=== PATIENT | male | born 1960 | race Caucasian/White ===

== ENCOUNTER 2018-04-27 09:39 | Inpatient (IN) ==
--- NOTE | 2018-04-27 09:45 | Emergency Department Note ---
General Adult HPI - General Stated complaint: maria del rosario Time Seen by Provider: 04/27/18 09:44 - Related Data Home Medications Medication Instructions Recorded Confirmed Atenolol [Atenolol] 100 mg PO DAILY 01/26/18 01/26/18 Lisinopril-HCTZ 20-12.5 [Prinzide 01/26/18 20-12.5] Lovastatin [Mevacor] 20 mg PO BID 01/26/18 01/26/18 metFORMIN [Glucophage] 500 mg PO BID 01/26/18 01/26/18 Previous Rx's Medication Instructions Recorded Doxycycline 100 mg PO BID #20 capsule 04/26/18 Allergies Allergy/AdvReac Type Severity Reaction Status Date / Time Erythromycin Base AdvReac See Verified 04/26/18 15:41 [From E-Mycin] Comments Past Medical History - Past Medical History Medical history: Reports: diabetes, hyperlipidemia, hypertension Surgical history: Reports: cholecystectomy Psychiatric history: Reports: no psych history - Social History Smoking Status: Never smoker Smokeless Tobacco Status: No Alcohol use: Reports: occasionally Drug use: Reports: none
--- NOTE | 2018-04-27 09:47 | Emergency Department Note ---
Disposition Clinical Impression: Congestive heart failure, KARI (acute kidney injury) Disposition: Still a Patient General Adult HPI - General Stated complaint: maria del rosario Time Seen by Provider: 04/27/18 09:44 - Related Data Home Medications Medication Instructions Recorded Confirmed Atenolol [Atenolol] 100 mg PO DAILY 01/26/18 04/27/18 Lovastatin [Mevacor] 40 mg PO QPM 01/26/18 04/27/18 metFORMIN [Glucophage] 500 mg PO BID 01/26/18 04/27/18 Lisinopril/Hydrochlorothiazide 1 tab PO DAILY 04/27/18 04/27/18 [Zestoretic 20-25 mg Tablet] Previous Rx's Medication Instructions Recorded Doxycycline 100 mg PO BID #20 capsule 04/26/18 Allergies Allergy/AdvReac Type Severity Reaction Status Date / Time Erythromycin Base AdvReac See Verified 04/26/18 15:41 [From E-Mycin] Comments Past Medical History - Past Medical History Medical history: Reports: diabetes, hyperlipidemia, hypertension Surgical history: Reports: cholecystectomy Psychiatric history: Reports: no psych history - Social History Smoking Status: Never smoker Smokeless Tobacco Status: No Alcohol use: Reports: occasionally Drug use: Reports: none Course Vital Signs Temperature 98.0 F 04/27/18 09:46 Pulse Rate 63 04/27/18 09:46 Respiratory Rate 26 04/27/18 09:46 Blood Pressure 116/67 04/27/18 09:46 O2 Sat by Pulse Oximetry 97 04/27/18 09:46 Temperature 98.7 F 04/27/18 15:55 Pulse Rate 93 04/27/18 15:55 Respiratory Rate 18 04/27/18 15:55 Blood Pressure 119/63 04/27/18 15:55 O2 Sat by Pulse Oximetry 91 04/27/18 15:55 Oxygen Delivery Oxygen Delivery Room Air Medical Decision Making - Lab Data Result diagrams: 04/27/18 09:59 04/27/18 09:59 Lab Results 04/27/18 04/27/18 04/27/18 Range/Units 09:59 09:59 09:59 WBC 7.2 (4.3-11.1) K/mcL RBC 3.85 L (4.19-5.50) M/mcL Hgb 11.0 L (12.9-16.9) g/dL Hct 33.9 L (37.5-50.1) % MCV 88.1 (83.0-100.0) fL MCH 28.6 (28.0-33.3) pg MCHC 32.4 (31.6-35.5) g/dL RDW 16.4 H (11.5-14.5) % Plt Count 350 (140-400) K/mcL MPV 9.3 L (9.4-12.4) fL Immature Gran % 0.6 (0-4) % Seg Neutrophils % 66.1 % Lymphocytes % 19.0 % Monocytes % 9.6 % Eosinophils % 3.9 % Basophils % 0.8 % Neutrophils # 4.8 (1.6-8.9) K/mcL Lymphocytes # 1.4 (0.6-4.6) K/mcL Monocytes # 0.7 (0.0-1.3) K/mcL Eosinophils # 0.3 (0.0-0.6) K/mcL Basophils # 0.1 (0.0-0.2) K/mcL PT 13.7 H (9.4-12.1) Seconds INR 1.2 Heparin Anti-Xa, Unfract 0.06 L (0.30-0.70) IU/mL Sodium 140 (136-145) mEq/L Potassium 3.5 (3.5-5.1) mEq/L Chloride 108 H (98-107) mEq/L Carbon Dioxide 20 L (23-29) mEq/L BUN 41 H (8-23) mg/dL Creatinine 2.26 H (0.70-1.30) mg/dL Est GFR ( Amer) 36 L (> 60) Est GFR (Non-Af Amer) 30 L (> 60) BUN/Creatinine Ratio 18 (6-26) Glucose 103 (70-105) mg/dL Calculated Osmolality 300 (280-300) Calcium 8.9 (8.6-10.3) mg/dL Magnesium 2.6 (1.6-2.6) mg/dL Total Bilirubin 0.2 L (0.3-1.0) mg/dL AST 46 H (13-39) Units/L ALT 20 (7-52) Units/L Alkaline Phosphatase 40 (34-104) Units/L Troponin I 0.47 H* (< 0.04) ng/mL B-Natriuretic Peptide (Less than 100) pg/mL Serum Total Protein 7.5 (6.4-8.9) g/dL Albumin 4.3 (3.5-5.7) g/dL Globulin 3.2 (2.4-3.5) g/dL Albumin/Globulin Ratio 1.3 (1.1-2.2) 04/27/18 Range/Units 09:59 WBC (4.3-11.1) K/mcL RBC (4.19-5.50) M/mcL Hgb (12.9-16.9) g/dL Hct (37.5-50.1) % MCV (83.0-100.0) fL MCH (28.0-33.3) pg MCHC (31.6-35.5) g/dL RDW (11.5-14.5) % Plt Count (140-400) K/mcL MPV (9.4-12.4) fL Immature Gran % (0-4) % Seg Neutrophils % % Lymphocytes % % Monocytes % % Eosinophils % % Basophils % % Neutrophils # (1.6-8.9) K/mcL Lymphocytes # (0.6-4.6) K/mcL Monocytes # (0.0-1.3) K/mcL Eosinophils # (0.0-0.6) K/mcL Basophils # (0.0-0.2) K/mcL PT (9.4-12.1) Seconds INR Heparin Anti-Xa, Unfract (0.30-0.70) IU/mL Sodium (136-145) mEq/L Potassium (3.5-5.1) mEq/L Chloride (98-107) mEq/L Carbon Dioxide (23-29) mEq/L BUN (8-23) mg/dL Creatinine (0.70-1.30) mg/dL Est GFR ( Amer) (> 60) Est GFR (Non-Af Amer) (> 60) BUN/Creatinine Ratio (6-26) Glucose (70-105) mg/dL Calculated Osmolality (280-300) Calcium (8.6-10.3) mg/dL Magnesium (1.6-2.6) mg/dL Total Bilirubin (0.3-1.0) mg/dL AST (13-39) Units/L ALT (7-52) Units/L Alkaline Phosphatase (34-104) Units/L Troponin I (< 0.04) ng/mL B-Natriuretic Peptide 120 H (Less than 100) pg/mL Serum Total Protein (6.4-8.9) g/dL Albumin (3.5-5.7) g/dL Globulin (2.4-3.5) g/dL Albumin/Globulin Ratio (1.1-2.2) Critical Care Time Critical Care Time: Yes Total Critical Care Time: 30 Attestation: The high probability of a clinically significant, sudden or life threatening deterioration of the [] system(s) required my full and direct attention, intervention and personal management. The aggregate critical care time was [] minutes. This time is in addition to time spent performing reported procedures but includes the following: [] Data Review and interpretation [] Patient assessment and monitoring of vital signs [] Documentation [] Medication orders and management Attestation Statement - Attestation Attestation: I examined this patient and my medical decision-making was reviewed with the Resident Physician. I agree with the documented findings, disposition and treatment plan as described except to the extent set forth below. [id number] time provided in conjunction with the resident physician Dr. Tinoco Patient arrives by EMS complaining of dyspnea. He is not oxygen dependent. He required assistance transferring from the stretcher to the medical examination bed. He is visibly dyspneic. He weighs 435 pounds
--- NOTE | 2018-04-27 10:02 | Emergency Department Note ---
Disposition Clinical Impression: Congestive heart failure, KARI (acute kidney injury) Disposition: Still a Patient Referrals: Phil Le MD [Primary Care Provider] - Forms: ED Satisfaction Letter SOB HPI - General Chief Complaint: ED Shortness of Breath/Dyspnea Stated Complaint: maria del rosario Time Seen by Provider: 04/27/18 09:44 Source: EMS Limitations: no limitations - History of Present Illness 58 YO M presenting with SOB with history of morbid obesity, diabetes, hyperlipidemia, hypertension. Patient reports having 2 week history of SOB, which has been constant and worsening. Endorses SOB with exertion but not at rest. Denies fever, night sweats, chills. Reports diabetes has been controlled and history of 15 years. Patient does not believe he has had workup for diabetes related end organ damage including heart and kidneys. Reports blood glucose has been controlled,, does not have last A1C. Patient recently started bipap 3 weeks ago and reports tolerating mask well. - Related Data Home Medications Medication Instructions Recorded Confirmed Atenolol [Atenolol] 100 mg PO DAILY 01/26/18 01/26/18 Lovastatin [Mevacor] 20 mg PO BID 01/26/18 01/26/18 metFORMIN [Glucophage] 500 mg PO BID 01/26/18 01/26/18 Lisinopril/Hydrochlorothiazide 1 tab PO DAILY 04/27/18 04/27/18 [Zestoretic 20-25 mg Tablet] Previous Rx's Medication Instructions Recorded Doxycycline 100 mg PO BID #20 capsule 04/26/18 Allergies Allergy/AdvReac Type Severity Reaction Status Date / Time Erythromycin Base AdvReac See Verified 04/26/18 15:41 [From E-Mycin] Comments Past Medical History - Past Medical History Medical history: Reports: diabetes, hyperlipidemia, hypertension Surgical history: Reports: cholecystectomy Psychiatric history: Reports: no psych history - Social History Smoking Status: Never smoker Smokeless Tobacco Status: No Alcohol use: Reports: occasionally Drug use: Reports: none Physical Exam - General Limitations: no limitations General appearance: alert, in no apparent distress - Head Head exam: atraumatic, normocephalic - Chest Chest inspection: Present: normal inspection, symmetric chest wall rise. Absent : tenderness - Respiratory Respiratory exam: Present: normal lung sounds bilaterally. Absent: wheezes, stridor, accessory muscle use, prolonged expiratory phase - Cardiovascular Cardiovascular exam: Present: regular rate, normal rhythm, normal heart sounds - Neurological Exam Neurological exam: Present: alert, oriented X3 - Psychiatric Psychiatric exam: Present: normal affect, normal mood Course Course Narrative: 58 YO M presenting with SOB with history of morbid obesity, diabetes, hyperlipidemia, hypertension. Lungs sound clear so no congestive process - no diuretics at this time. CXR ordered. Will give BIPAP. Given patient's several cardiac risk factors - tropinons and ekg. - Reevaluation(s) Reevaluation #1: CXR showed cardiomegaly and vascular congestion - going to give lasixs. Troponin 0.47, most likely NSTEMI or baseline levels due to morbid obesity. Given aspirin and low does heparin. Spoke to cardiology and they are on board to manage patient. Admitting to hospitalists. Vital Signs Temperature 98.0 F 04/27/18 09:46 Pulse Rate 63 04/27/18 09:46 Respiratory Rate 26 04/27/18 09:46 Blood Pressure 116/67 04/27/18 09:46 O2 Sat by Pulse Oximetry 97 04/27/18 09:46 Temperature 98.0 F 04/27/18 09:46 Pulse Rate 63 04/27/18 09:46 Respiratory Rate 11 04/27/18 10:06 Blood Pressure 116/67 04/27/18 10:06 O2 Sat by Pulse Oximetry 97 04/27/18 10:06 Oxygen Delivery Oxygen Delivery Room Air Shortness of Breath/Dyspnea - Lab Data Result diagrams: 04/27/18 09:59 04/27/18 09:59 Lab Results 04/27/18 04/27/18 04/27/18 Range/Units 09:59 09:59 09:59 WBC 7.2 (4.3-11.1) K/mcL RBC 3.85 L (4.19-5.50) M/mcL Hgb 11.0 L (12.9-16.9) g/dL Hct 33.9 L (37.5-50.1) % MCV 88.1 (83.0-100.0) fL MCH 28.6 (28.0-33.3) pg MCHC 32.4 (31.6-35.5) g/dL RDW 16.4 H (11.5-14.5) % Plt Count 350 (140-400) K/mcL MPV 9.3 L (9.4-12.4) fL Immature Gran % 0.6 (0-4) % Seg Neutrophils % 66.1 % Lymphocytes % 19.0 % Monocytes % 9.6 % Eosinophils % 3.9 % Basophils % 0.8 % Neutrophils # 4.8 (1.6-8.9) K/mcL Lymphocytes # 1.4 (0.6-4.6) K/mcL Monocytes # 0.7 (0.0-1.3) K/mcL Eosinophils # 0.3 (0.0-0.6) K/mcL Basophils # 0.1 (0.0-0.2) K/mcL PT 13.7 H (9.4-12.1) Seconds INR 1.2 Heparin Anti-Xa, Unfract 0.06 L (0.30-0.70) IU/mL Sodium 140 (136-145) mEq/L Potassium 3.5 (3.5-5.1) mEq/L Chloride 108 H (98-107) mEq/L Carbon Dioxide 20 L (23-29) mEq/L BUN 41 H (8-23) mg/dL Creatinine 2.26 H (0.70-1.30) mg/dL Est GFR ( Amer) 36 L (> 60) Est GFR (Non-Af Amer) 30 L (> 60) BUN/Creatinine Ratio 18 (6-26) Glucose 103 (70-105) mg/dL Calculated Osmolality 300 (280-300) Calcium 8.9 (8.6-10.3) mg/dL Magnesium 2.6 (1.6-2.6) mg/dL Total Bilirubin 0.2 L (0.3-1.0) mg/dL AST 46 H (13-39) Units/L ALT 20 (7-52) Units/L Alkaline Phosphatase 40 (34-104) Units/L Troponin I 0.47 H* (< 0.04) ng/mL Serum Total Protein 7.5 (6.4-8.9) g/dL Albumin 4.3 (3.5-5.7) g/dL Globulin 3.2 (2.4-3.5) g/dL Albumin/Globulin Ratio 1.3 (1.1-2.2) - EKG Data EKG results narrative: no ST elevation EKG shows normal: Reports: sinus rhythm, axis, intervals, QRS complexes, ST-T waves Rate: Reports: normal Heart block present: Denies: 1st Degree, Mobitz 1, Mobitz 2, complete heart block
[2018-04-27 10:14] LABS: Basophils # 0.1 K/mcL (0.0-0.2); Basophils % 0.8 %; Eosinophils # 0.3 K/mcL (0.0-0.6); Eosinophils % 3.9 %; Hematocrit 33.9 % (37.5-50.1); Immature Granulocytes % 0.6 % (0-4); Lymphocytes # 1.4 K/mcL (0.6-4.6); Mean Corpuscular HGB Conc 32.4 g/dL (31.6-35.5); Mean Corpuscular Hemoglobin 28.6 pg (28.0-33.3); Mean Corpuscular Volume 88.1 fL (83.0-100.0); Mean Platelet Volume 9.3 fL (9.4-12.4); Monocytes # 0.7 K/mcL (0.0-1.3); Monocytes % 9.6 %; Neutrophils # 4.8 K/mcL (1.6-8.9); Platelet Count 350 K/mcL (140-400); Red Blood Count 3.85 M/mcL (4.19-5.50); Red Cell Distribution Width 16.4 % (11.5-14.5); Segmented Neutrophils % 66.1 %
[2018-04-27 10:22] LABS: INR 1.2; Prothrombin Time 13.7 Seconds (9.4-12.1)
[2018-04-27 10:31] LABS: Albumin 4.3 g/dL (3.5-5.7); Albumin/Globulin Ratio 1.3 (1.1-2.2); Bilirubin,Total 0.2 mg/dL (0.3-1.0); Calcium 8.9 mg/dL (8.6-10.3); Globulin 3.2 g/dL (2.4-3.5); Magnesium 2.6 mg/dL (1.6-2.6); Potassium 3.5 mEq/L (3.5-5.1); Total Protein 7.5 g/dL (6.4-8.9)
[2018-04-27] MEDS ORDERED: Furosemide 40 MG/4 ML VIAL IVP ONE (10:35)
[2018-04-27 10:37] LABS: Troponin I 0.47 ng/mL (< 0.04)
[2018-04-27] MEDS ORDERED: Aspirin 325 MG TABLET PO ONE (10:38)
[2018-04-27] MEDS ORDERED: *HR* Heparin 5,000 UNIT/ML VIAL IVP PRN ×2 (10:39)
[2018-04-27 10:49] LABS: Heparin anti-factor XA UFH 0.06 IU/mL (0.30-0.70)
[2018-04-27] MEDS: Heparin 25,000 UNIT/500 ML D5W 25,000 UNIT/500 ML BAG IVC SCH (12:29)
[2018-04-27] MEDS ORDERED: Naloxone 0.4 MG/ML INJ IVP PRN (13:19)
[2018-04-27] MEDS ORDERED: *HR* HYDROcodone/Acet 5/325 mg TABLET PO PRN (13:19)
[2018-04-27] MEDS ORDERED: *HR* OxyCODONE Immed Rel 5 MG TABLET PO PRN (13:19)
--- NOTE | 2018-04-27 13:22 | Internal Med History&Physical ---
Date of Encounter: 04/27/18 Time of Encounter: 13:21 Internal Medicine - H&P: HPI Chief complaint: Shortness of breath on exertion Admitted From: Home Plans for Post Hospital Care: Home History of present illness: Mr. Slater is a 58 year old male with PMH of DM, Morbid Obesity with BMI of 68.1 , HLD, HTN, Hearing difficulty who presented with complains of shortness of breath The patient was in his usual state of health till3 days prior to presentation when he developed shortness of breath, worse with exertion, the patient reports he presented to the urgent care twice this week for the same complaints, he reports associated nausea and fatigue with shortness of breath on exertion. He had no chest pain. On evaluation, he still has no chest pain. However he was told in the urgent care today was dehydrated and encouraged to take liberal fluids and discharged home. He reports shortness of breath continues to worsen such that he can only walk a few feet before being dyspneic. He has a medical history of obstructive sleep apnea and is compliant with his CPAP machine. He denies cough, he denies fever or chills, he denies palpitations, he denies diaphoresis. chart review, the patient was at the emergency room yesterday, a vq scan was done to rule out pulmonary embolism showed low probability for pe, creatinine was double the patient's baseline. He denies any changes in bowel habits, no changes in urinary habits, but he reports poor oral intake in the past few days. He denies NSAIDs use, he denies flank pain or dysuria. He has no neurologic symptoms. He does have chronic sensorineural hearing difficulty. Workup in the emergency room reveals acute kidney injury, chronic anemia at baseline, normal coagulation panel, LFTs unremarkable, troponin is elevated at 0.47. Troponin yesterday 04/26/18 was within normal limit. BNP is 120. Chest x- ray showed mild vascular congestion which is a new finding compared to chest x- ray done yesterday 04/26/18. EKG shows sinus rhythm, with no ST segment depression or T-wave changes. The patient will be admitted as inpatient for management of acute kidney injury with a NSTEMI At time of review, he is chest pain-free, he is hemodynamically stable and is not hypoxic. The patient is full code. Past Med Surg Social Fam HX - Past Medical History Medical history: diabetes, hyperlipidemia, hypertension Psychiatric history: no psych history - Past Surgical History Surgical History: cholecystectomy - Social History Smoking Status: Never smoker Smokeless Tobacco Status: No Alcohol use: occasionally Drug use: none Internal Medicine - H&P: Meds Atenolol [Atenolol] 100 mg PO DAILY 01/26/18 [History] Lovastatin [Mevacor] 40 mg PO QPM 01/26/18 [History] metFORMIN [Glucophage] 500 mg PO BID 01/26/18 [History] Doxycycline 100 mg PO BID #20 capsule 04/26/18 [Rx] Lisinopril/Hydrochlorothiazide [Zestoretic 20-25 mg Tablet] 1 tab PO DAILY 04/27 [History] 3 Allergy/AdvReac Type Severity Reaction Status Date / Time Erythromycin Base AdvReac See Verified 04/26/18 15:41 [From E-Mycin] Comments All Systems PM: A 10-system review of systems was performed and is negative for pertinent findings except as documented above in the HPI. - Constitutional Constitutional: as per HPI - EENT Eyes: as per HPI Ears: as per HPI Nose, mouth and throat: as per HPI - Cardiovascular Cardiovascular ROS IM: as per HPI - Respiratory Respiratory: as per HPI - Gastrointestinal Gastrointestinal: as per HPI - Musculoskeletal Musculoskeletal ROS IM: as per HPI - Integumentary Integumentary IM: as per HPI - Neurological Neurological ROS: as per HPI - Hematologic/Lymphatic Hematologic/Lymphatic: as per HPI - Constitutional Vitals: Temp Pulse Resp BP Pulse Ox 98.0 F 63 16 121/67 97 04/27/18 09:46 04/27/18 09:46 04/27/18 12:42 04/27/18 12:42 04/27/18 10:06 General appearance: Present: mild distress (mild resp dstress, diaphoretic), A& O X 3, morbidly obese, pleasant Exam: see detailed exam - Head Head exam: Present: atraumatic - Eye Eye exam: Present: PERRL, conjuntiva pink, sclera anicteric - ENT ENT exam: Present: mucous membranes moist - Neck Neck exam general surgery: Present: normal inspection - Respiratory Respiratory exam: Present: CTAB - Cardiovascular Cardiovascular exam: Present: RRR, +S1, +S2. Absent: JVD - GI/Abdominal GI/Abdominal exam: Present: normal bowel sounds, soft, no peritoneal signs. Absent: mass, tenderness - Extremities Exam Extremities exam: Present: normal inspection. Absent: pedal edema - Neurological Exam Neurological exam: Present: alert, CN II-XII intact, oriented X3, no focal deficits. Absent: pronater drift, facial droop, speech deficit - Skin Skin exam: Present: dry, intact Internal Med - H&P Results - Labs CBC & Chem 7: 04/27/18 09:59 04/27/18 09:59 - Assessment and plan (1) Acute coronary syndrome Current Visit: Yes Status: Acute Assessment and plan: Patient with likely acute coronary syndrome -NSTEMI due to sudden onset dyspnea on exertion with elevated troponin in a diabetic patient with significant family history of coronary artery disease. And hyperlipidemia. Initial troponin 0.47, troponin yesterday was within normal limit Heparin infusion has been started by the emergency room, continue the same. Continue aspirin 81 mg daily Discontinue home dose of atenolol, changed to metoprolol 12.5 mg twice a day Continue Lipitor Check A1c and lipid panel with morning labs Cardiology has been consulted by the emergency room team, will follow recommendations. (2) Diabetes mellitus Current Visit: Yes Status: Chronic Assessment and plan: Hold home dose of metformin Check A1c with morning labs Fingerstick before meals at bedtime Diabetic diet Sliding-scale insulin. Qualifiers: Diabetes mellitus type: type 2 Diabetes mellitus extermination inspector insulin use: without extermination inspector use Diabetes mellitus complication status: without complication Qualified Code(s): E11.9 - Type 2 diabetes mellitus without complications (3) Morbid obesity Current Visit: Yes Status: Chronic Assessment and plan: Encouraged lifestyle modification. In the patient meets requirement for bariatric surgery. Follow-up with primary care physician. (4) AROLDO (obstructive sleep apnea) Current Visit: Yes Status: Chronic Assessment and plan: Continue CPAP at night. (5) HLD (hyperlipidemia) Current Visit: Yes Status: Chronic Assessment and plan: Continue Lipitor. Lipid panel with morning labs. Qualifiers: Hyperlipidemia type: unspecified Qualified Code(s): E78.5 - Hyperlipidemia , unspecified (6) Acute kidney injury Current Visit: Yes Status: Acute Assessment and plan: Nonoliguric likely prerenal acute kidney injury Patient reports poor oral intake, and denies use of NSAIDs. Baseline creatinine is 1.1 with a normal GFR Presents with creatinine of 2.26 and GFR of 30. Obtain retroperitoneal ultrasound Continue IV fluid 100 mL per hour, monitor respiratory status Strict intake and output measurement Consider nephrology evaluation Hold home medications. - Time Spent With Patient Total time spent is greater than 50% in coordination of care (as documented) at patient's floor/unit and/or counseling patient:
[2018-04-27] MEDS: 0.9 % Sodium Chloride 1,000 ML IVC SCH (16:30)
[2018-04-28] MEDS: 0.9 % Sodium Chloride 1,000 ML IVC SCH ×2 (03:57→13:08)
[2018-04-28 05:24] LABS: Basophils # 0.1 K/mcL (0.0-0.2); Eosinophils # 0.6 K/mcL (0.0-0.6); Eosinophils % 8.6 %; Hematocrit 32.3 % (37.5-50.1); Hemoglobin 10.2 g/dL (12.9-16.9); Immature Granulocytes % 0.6 % (0-4); Lymphocytes # 2.3 K/mcL (0.6-4.6); Lymphocytes % 31.7 %; Mean Corpuscular HGB Conc 31.6 g/dL (31.6-35.5); Mean Corpuscular Hemoglobin 28.3 pg (28.0-33.3); Mean Corpuscular Volume 89.7 fL (83.0-100.0); Mean Platelet Volume 9.2 fL (9.4-12.4); Monocytes # 0.9 K/mcL (0.0-1.3); Monocytes % 12.2 %; Neutrophils # 3.3 K/mcL (1.6-8.9); Platelet Count 289 K/mcL (140-400); Red Cell Distribution Width 16.6 % (11.5-14.5); Segmented Neutrophils % 45.9 %
[2018-04-28 05:40] LABS: Calcium 8.4 mg/dL (8.6-10.3); Potassium 3.4 mEq/L (3.5-5.1)
--- NOTE | 2018-04-28 08:14 | Cardiology Consult Note ---
<Domonique Correa R - Last Filed: 04/28/18 15:10> Date of Encounter: 04/28/18 Time of Encounter: 09:21 Assessment and Plan (1) Acute kidney injury Current Visit: Yes Status: Acute (2) Diabetes mellitus Current Visit: Yes Status: Chronic Qualifiers: Diabetes mellitus type: type 2 Diabetes mellitus group home insulin use: without group home use Diabetes mellitus complication status: without complication Qualified Code(s): E11.9 - Type 2 diabetes mellitus without complications (3) Morbid obesity Current Visit: Yes Status: Chronic (4) Shortness of breath Current Visit: Yes Status: Acute Discussion w patient/family: Awaiting echo results. Troponin is downtrending. Received call from nurse staff regarding patient's NPO status and an order for plavix. We advised holding off on medication until the echo report is read and a final plan is determined. Echo has been read as normal EF with undetermined diastolic function due to pt body habitus. His troponin bump is likely due to demand ischemia. Ok to proceed with medical management with aspirin and Beta denisse and follow up outpatient. No need for plavix therapy at this point. We recommend 40mg IV lasix QD until asx but will keep a close watch over renal function. The assessment and plan as outlined above was discussed with the patient and/or family members who expressed understanding and agreement. All questions were answered. Thank you for involving us in the care of your patient. Please call with any questions. History of Present Illness Consult date: 04/27/18 Requesting physician: John Penny Consult reason: NSTEMI Chief complaint: shortness of breath History of present illness: Mr. Slater is a 58 year old male who presents to the ED for 4 days of memory "black outs" with increasing shortness of breath. He has a PMHx of DM, HTN, HLD , AROLDO and morbid obesity. He denies ever feeling short of breath like this before. He states he has also noticed some leg swelling that is new and has had decreased urination. He has a family history of 2 brothers requiring bypass and his father had 3 MIs. He denies fever, congestion, chest pain, abdominal pain, nausea and diaphoresis. He has been coughing but it has not been productive. He reports being compliant with his sleep apnea machine but thinks the pressure settings have been off as he has not been sleeping as well with it over the past several days. He reoprts not being able to speak in complete sentences yesterday due to SOB but today is able to. He is not yet back to baseline but feels much better and has had increased urination due to the lasix. Past Med Surg Social Fam HX - Past Medical History Medical history: diabetes, hyperlipidemia, hypertension Psychiatric history: no psych history - Past Surgical History Surgical History: cholecystectomy - Social History Smoking Status: Never smoker Smokeless Tobacco Status: No Alcohol use: occasionally Drug use: none - Family History Brother Name: Jt Slater Living Status: Still Living Hx Family Cardiac Disorders: Yes (x2 heart attack, CABG, stents) Medications and Allergies Atenolol [Atenolol] 100 mg PO DAILY 01/26/18 [History] Lovastatin [Mevacor] 40 mg PO QPM 01/26/18 [History] metFORMIN [Glucophage] 500 mg PO BID 01/26/18 [History] Doxycycline 100 mg PO BID #20 capsule 04/26/18 [Rx] Lisinopril/Hydrochlorothiazide [Zestoretic 20-25 mg Tablet] 1 tab PO DAILY 04/27 [History] 3 Allergy/AdvReac Type Severity Reaction Status Date / Time Erythromycin Base AdvReac See Verified 04/26/18 15:41 [From E-Mycin] Comments All Systems Review: The remainder of the systems were reviewed and are negative - Constitutional Constitutional: no chills, no fatigue, no fever(s), no headache(s) - EENT Eyes: no blurred vision, no loss of vision Nose, mouth and throat: no epistaxis, no sore throat - Cardiovascular Cardiovascular: dyspnea at rest, dyspnea on exertion, leg edema, no chest pain at rest, no chest pain with exertion, no diaphoresis, no irregular heart rhythm , no syncope - Respiratory Respiratory: cough, dyspnea, no hemoptysis, no wheezing - Gastrointestinal Gastrointestinal: no abdominal pain, no constipation, no diarrhea, no nausea - Genitourinary Genitourinary: no dysuria, no hematuria - Musculoskeletal Musculoskeletal: no abnormal gait, no muscle cramps, no muscle weakness - Integumentary Integumentary: no erythema, no rash - Neurological Neurological: memory loss, no abnormal speech, no dizziness, no syncope Physical Examination Vital Signs, Last 4 Hours Temp Pulse Resp BP Pulse Ox 09/07/18 07:28 98.0 F 58 22 107/63 96 General: Conversant, No Apparent Distress HEENT: Atraumatic, Normocephaly, Mucus Membranes Moist Neck: No JVD, Normal carotid pulses Cardiac: Other (heart sounds hard to appreciate due to pt body habitus) Lungs: No Wheeze, Rales, Rhonchi, Other (decreased breath sounds throughout) Neuro: Alert and responsive, No focal deficits noted Abdomen: Soft, Non-Tender Skin: No rashes noted on visualized skin Musculoskeletal: No Chest Wall Tenderness Extremities: No Cyanosis, Normal Pulses, Other (pedal edema present) Results 04/28/18 04:47 04/28/18 04:47 Lab Results 04/27/18 04/27/18 04/28/18 13:30 22:30 04:47 WBC 7.2 Hgb 10.2 L Hct 32.3 L Plt Count 289 Sodium Potassium Chloride Carbon Dioxide BUN Creatinine Glucose Calcium Troponin I 0.62 H* 0.50 H* 04/28/18 04:47 WBC Hgb Hct Plt Count Sodium 135 L Potassium 3.4 L Chloride 104 Carbon Dioxide 18 L BUN 44 H Creatinine 2.33 H Glucose 89 Calcium 8.4 L Troponin I Consult Discharge Plan - Plan Referrals: Phil Le MD [Primary Care Provider] - <Brayden Almendarez - Last Filed: 04/28/18 16:26> Date of Encounter: 04/28/18 - Attending Attestation I examined this patient and my medical decision-making was reviewed with the Resident Physician. I agree with the documented findings, disposition and treatment plan as described except to the extent set forth below. Symptoms mostly consistent with fluid overload. EF normal by echo so suspect diastolic dysfunction. Would abb BBlocker and diurese with close monitoring of renal function. Assessment and Plan Discussion w patient/family: The assessment and plan as outlined above was discussed with the patient and/or family members who expressed understanding and agreement. All questions were answered. Thank you for involving us in the care of your patient. Please call with any questions. History of Present Illness History of present illness: Mr. Slater is a 58 year old male All Systems Review: The remainder of the systems were reviewed and are negative Physical Examination Vital Signs, Last 4 Hours Temp Pulse Resp BP Pulse Ox 04/28/18 16:15 97.9 F 61 18 168/63 97 Results 04/28/18 04:47 04/28/18 04:47 Lab Results 04/27/18 04/28/18 04/28/18 22:30 04:47 04:47 WBC 7.2 Hgb 10.2 L Hct 32.3 L Plt Count 289 Sodium 135 L Potassium 3.4 L Chloride 104 Carbon Dioxide 18 L BUN 44 H Creatinine 2.33 H Glucose 89 Calcium 8.4 L Troponin I 0.50 H*
[2018-04-28] MEDS ORDERED: Perflutren Lipid Microsphere 1.3 ML in 0.9 % Sodium Chloride 8.7 ML IVP ONE (09:52)
[2018-04-28] MEDS: Heparin 25,000 UNIT/500 ML D5W 25,000 UNIT/500 ML BAG IVC SCH (10:57)
[2018-04-28] MEDS: Aspirin Enteric Coated 81 MG Tablet PO SCH (10:58)
--- NOTE | 2018-04-28 13:16 | Internal Med Progress Note ---
Hospitalist Progress Note - Encounter Date of Encounter: 04/28/18 Time of Encounter: 08:00 - Subjective Interval History: Patient was seen and examined at bedside. Denies chest pain, palpitations, shortness of breath, leg swelling. He reports that he has CPAP at home but is at times noncompliant. Denies history of blood clots and is compliant with all his medications. As per patient his shortness of breath started 3 days prior to admission where he developed shortness of breath on exertion. He can only walk about 100 feet before having to stop to catch his breath. At baseline he ambulates with a cane , he reports that for the past 3 days walking around his house has been more difficult. He denies nausea, vomiting, diarrhea, cough, palpitations, lower extremity swelling, calf tenderness He is inquiring about diet. Currently has no pain, no overnight events - Exam Vitals: Temp Pulse Resp BP Pulse Ox 98.8 F 60 16 117/60 93 04/28/18 11:36 04/28/18 11:36 04/28/18 11:36 04/28/18 11:36 04/28/18 11:36 Exam: General: Patient is alert, oriented, no acute distress, morbidly obese Head: atraumatic, normocephalic, Eye: normal appearance, PERRL, no scleral icterus, no conjunctival injection, short neck ENT: mucous membranes moist, normal external ear exam Neck: normal inspection, trachea midline, full ROM, no carotid bruits Chest: normal inspection, symmetric chest rise Respiratory: Decreased breath sounds secondary to body habitus, Good respiratory effort. Bilateral breath sounds are clear without wheezing, crackles, or rhonchi. Cardiovascular: Distant heart sounds secondary to body habitus, Regular rate and rhythm. s1 and s2 No clicks, rubs, gallops, or murmors. Abdomen: Bowel sounds present normoactive x-4 quadrants. Abdomen is soft, nondistended. no Epigastric tenderness. No guarding or rebound. No organomegaly noted, obese musculoskeletal: Spontaneously moving all extremities. +1 edema, of the feet, no calf tenderness Skin: warm, dry, intact. Neuro: Alert and oriented x4. Sensation light touch intact. Cranial nerves 2- 12 is intact. Not aphasic, no focal deficit Psych: Patient's affect is normal - Assessment and Plan (1) NSTEMI (non-ST elevated myocardial infarction) Current Visit: Yes Status: Acute Assessment and Plan: -NSTEMI due to sudden onset dyspnea on exertion with elevated troponin in a diabetic patient with significant family history of coronary artery disease. And hyperlipidemia. Ruled out PE- VQ scan performed on 04/26 was low probability for PE Initial troponin 0.47, which trended up to 0.62 and 0.05 BNP 120 Heparin drip was started in the ED, pharmacist dose He was loaded with aspirin in the ED We will loaded with Plavix and continue 75 daily Continue aspirin 81 daily Was started on metoprolol 12.5 mg twice a day Continue Lipitor We will hold off of ACEI as he has ARF Cardiology has been consulted by the emergency room team, will follow recommendations. TTE V/Q scan 04/26- IMPRESSION: Low probability for pulmonary embolus. CXR: IMPRESSION: 1. Cardiomegaly with mild vascular congestion. (2) Acute renal failure (ARF) Current Visit: Yes Status: Acute Assessment and Plan: Nonoliguric, most likely secondary to prerenal kidney injury from NSTEMI Creatinine on 11/04/17- was 1.10 It has increased to 2.33 on 04/28 We will continue IV fluids, watch for overload Retroperitoneal ultrasound was performed which was unremarkable, full report below Strict intake and output measurement Will Consider nephrology evaluation if creatinine continues to trend up despite IV fluids Avoid nephrotoxic medications, will hold evelyn and metformin retroperitoneal US: IMPRESSION: No acute abnormality detected. Limited examination. (3) Diabetes mellitus Current Visit: Yes Status: Chronic Assessment and Plan: Hold home dose of metformin A1c is pending Fingerstick before meals at bedtime Diabetic diet- although nothing by mouth for now for possible cardiology intervention Sliding-scale insulin. (4) Morbid obesity Current Visit: Yes Status: Chronic Assessment and Plan: Encouraged lifestyle modification. patient meets requirement for bariatric surgery. Follow-up with primary care physician. (5) AROLDO (obstructive sleep apnea) Current Visit: Yes Status: Chronic Assessment and Plan: Continue CPAP at night. (6) HLD (hyperlipidemia) Current Visit: Yes Status: Chronic Assessment and Plan: Continue Lipitor. Lipid panel with morning labs. (7) Hypokalemia Current Visit: Yes Status: Acute Assessment and Plan: has ARF but replaced with 20 meq orally follow bmp in AM (8) DVT prophylaxis Current Visit: Yes Status: Acute Assessment and Plan: on heparin drip - Time Spent with Patient Total time spent is greater than 50% in coordination of care (as documented) at patient's floor/unit and/or counseling patient: Internal Medicine: Result - Labs CBC & Chem 7: 04/28/18 04:47 04/28/18 04:47 Labs: Short CBC 04/28/18 Range/Units 04:47 WBC 7.2 (4.3-11.1) K/mcL Hgb 10.2 L (12.9-16.9) g/dL Hct 32.3 L (37.5-50.1) % Plt Count 289 (140-400) K/mcL Neutrophils # 3.3 (1.6-8.9) K/mcL BMP 04/28/18 04:47 Sodium 135 L Potassium 3.4 L Chloride 104 Carbon Dioxide 18 L BUN 44 H Creatinine 2.33 H Glucose 89 Calcium 8.4 L Cardiac Enzymes 04/27/18 04/27/18 Range/Units 13:30 22:30 Troponin I 0.62 H* 0.50 H* (< 0.04) ng/mL - ABG Interpretation ABG results: PT/INR, D-dimer PT 13.7 Seconds (9.4-12.1) H 04/27/18 09:59 - Impressions Impressions Retroperitoneum Ultrasound 04/27/18 20:30 IMPRESSION: No acute abnormality detected. Limited examination. D/ / Ishmael Lawrence MD / Ishmael Lawrence MD Interpreting Provider: Ishmael Lawrence MD Consult Discharge Plan - Plan Referrals: Phil Le MD [Primary Care Provider] - (3) Diabetes mellitus Qualifiers: Diabetes mellitus type: type 2 Diabetes mellitus care home insulin use: without ampoule inspector use Diabetes mellitus complication status: without complication Qualified Code(s): E11.9 - Type 2 diabetes mellitus without complications (6) HLD (hyperlipidemia) Qualifiers: Hyperlipidemia type: unspecified Qualified Code(s): E78.5 - Hyperlipidemia, unspecified
[2018-04-28] MEDS: Furosemide 40 MG/4 ML VIAL IVP SCH (17:25)
--- NOTE | 2018-04-28 18:08 | Electrocardiograph Report ---
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
[2018-04-29] MEDS: 0.9 % Sodium Chloride 1,000 ML IVC SCH ×2 (03:40→06:35)
[2018-04-29 05:27] LABS: Hematocrit 31.7 % (37.5-50.1); Hemoglobin 10.1 g/dL (12.9-16.9); Mean Corpuscular HGB Conc 31.9 g/dL (31.6-35.5); Mean Corpuscular Hemoglobin 28.3 pg (28.0-33.3); Mean Corpuscular Volume 88.8 fL (83.0-100.0); Mean Platelet Volume 9.1 fL (9.4-12.4); Platelet Count 296 K/mcL (140-400); Red Blood Count 3.57 M/mcL (4.19-5.50); Red Cell Distribution Width 16.3 % (11.5-14.5)
[2018-04-29 05:46] LABS: Calcium 8.8 mg/dL (8.6-10.3); Potassium 3.6 mEq/L (3.5-5.1)
[2018-04-29] MEDS ORDERED: 0.9 % Sodium Chloride 1,000 ML IVC SCH (07:30)
[2018-04-29 08:54] LABS: Estimated Average Glucose 128 mg/dl; Hemoglobin A1C 6.1 %
[2018-04-29] MEDS: Furosemide 40 MG/4 ML VIAL IVP SCH (10:12)
[2018-04-29] MEDS: Aspirin Enteric Coated 81 MG Tablet PO SCH (10:12)
--- NOTE | 2018-04-29 11:40 | Cardiology Progress Note ---
Date of Encounter: 04/29/18 Time of Encounter: 11:00 Assessment and Plan (1) Diastolic CHF Current Visit: Yes Status: Acute CHFpEF. TTE reviewed-LVEF 65%. Indeterminate diastolic function. No significant valvular dysfunction. Unable to estimate RVSP due to lack of TR jet. RA pressure 10 mmHg. Reports 25 lb weight gain. Likely multifactoral with AROLDO and morbid obesity. Weight down 16 lbs today. Symptoms improved. IV lasix today and until at dry weight. WIll need maintenance lasix at home- 40 mg daily. CHF education reviewed. Low sodium diet. Cardiology will sign off, out-pt f/u. Qualifiers: Heart failure chronicity: acute on chronic Qualified Code(s): I50.33 - Acute on chronic diastolic (congestive) heart failure (2) Elevated troponin Current Visit: Yes Status: Acute Adynamic troponin elevation likely demand ischemia in the setting of CHF, CKD. He denies chest pain. TTE shows preserved EF. No further testing at this time. Discussion w patient/family: The assessment and plan as outlined above was discussed with the patient and/or family members who expressed understanding and agreement. All questions were answered. Thank you for involving us in the care of your patient. Please call with any questions. Subjective Principal diagnosis: DCHF Interval history: Reports he is breathing better but with some SOB. Objective Vital Signs, Last 4 Hours Temp Pulse Resp BP Pulse Ox 04/29/18 11:20 98.5 F 74 18 148/85 95 04/29/18 10:53 97 General: Conversant, No Apparent Distress, Other (Morbidly obese male) HEENT: Atraumatic, Normocephaly, Mucus Membranes Moist Neck: No JVD, Normal carotid pulses Cardiac: Reg Rate and Rhythm, Normal S1 and S2, No Murmur Lungs: Normal Breath Sounds, No Wheeze, Rales, Rhonchi, Other (DIminished) Neuro: Alert and responsive, No focal deficits noted Abdomen: Soft, Non-Tender Skin: No rashes noted on visualized skin Musculoskeletal: No Chest Wall Tenderness Extremities: No Clubbing, No Cyanosis, No Edema, Normal Pulses Results 04/29/18 05:12 04/29/18 05:12 Lab Results 04/29/18 04/29/18 05:12 05:12 WBC 7.0 Hgb 10.1 L Hct 31.7 L Plt Count 296 Sodium 136 Potassium 3.6 Chloride 105 Carbon Dioxide 19 L BUN 32 H Creatinine 1.67 H Glucose 81 Calcium 8.8 - Imaging and Cardiology Echo: report reviewed - EKG Interpretation EKG results cardiology: personally reviewed Consult Discharge Plan - Plan Referrals: Phil Le MD [Primary Care Provider] -
[2018-04-29] MEDS: Acetaminophen 325 MG TABLET PO PRN (11:47)
--- NOTE | 2018-04-29 11:53 | Internal Med Progress Note ---
Hospitalist Progress Note - Encounter Date of Encounter: 04/29/18 Time of Encounter: 11:51 - Subjective Interval History: patient was seen and examined at bedside. he reports improvement in his breathing. denies chest pain, SOB, palpitations, no overnight events overnight tolerated PO diet does however report seeing bugs in the sink and on the peterson, denies psych history denies SI or HI - Exam Vitals: Temp Pulse Resp BP Pulse Ox 98.5 F 74 18 148/85 95 04/29/18 11:20 04/29/18 11:20 04/29/18 11:20 04/29/18 11:20 04/29/18 11:20 Exam: General: Patient is alert, oriented, no acute distress, morbidly obese Head: atraumatic, normocephalic, Eye: normal appearance, PERRL, no scleral icterus, no conjunctival injection, short neck ENT: mucous membranes moist, normal external ear exam Neck: normal inspection, trachea midline, full ROM, no carotid bruits Chest: normal inspection, symmetric chest rise Respiratory: Decreased breath sounds secondary to body habitus, Good respiratory effort. Bilateral breath sounds are clear without wheezing, crackles, or rhonchi. Cardiovascular: Distant heart sounds secondary to body habitus, Regular rate and rhythm. s1 and s2 No clicks, rubs, gallops, or murmors. Abdomen: Bowel sounds present normoactive x-4 quadrants. Abdomen is soft, nondistended. no Epigastric tenderness. No guarding or rebound. No organomegaly noted, obese musculoskeletal: Spontaneously moving all extremities. +1 edema, of the feet, no calf tenderness Skin: warm, dry, intact. Neuro: Alert and oriented x4. Sensation light touch intact. Cranial nerves 2- 12 is intact. Not aphasic, no focal deficit Psych: Patient's affect is normal - Assessment and Plan (1) Elevated troponin Current Visit: Yes Status: Acute Assessment and Plan: most likely secondary to supply vs demand mismatch Ruled out PE- VQ scan performed on 04/26 was low probability for PE Initial troponin 0.47, which trended up to 0.62 and 0.05 BNP 120 Heparin drip was started in the ED, pharmacist dose- for NSTEMI He was loaded with aspirin in the ED Continue aspirin 81 daily Was started on metoprolol 12.5 mg twice a day Continue Lipitor We will hold off of ACEI as he has ARF Cardiology consulted and he wa started on lasix TTE Impressions: Technically sub-optimal due to poor echocardiographic windows, patient body habitus. LVEF 65%. Indeterminate diastolic function. No significant valvular dysfunction. Unable to estimate RVSP due to lack of TR jet. RA pressure 10 mmHg V/Q scan 04/26- IMPRESSION: Low probability for pulmonary embolus. CXR: IMPRESSION: 1. Cardiomegaly with mild vascular congestion. (2) (HFpEF) heart failure with preserved ejection fraction Current Visit: Yes Status: Acute Assessment and Plan: Reports 25 lb weight gain. Likely multifactoral with AROLDO and morbid obesity. Weight down 16 lbs today. Symptoms improved on IV lasix Low sodium diet. cardiology as OP TTE 04/27 Impressions: Technically sub-optimal due to poor echocardiographic windows, patient body habitus. LVEF 65%. Indeterminate diastolic function. No significant valvular dysfunction. Unable to estimate RVSP due to lack of TR jet. RA pressure 10 mmHg (3) Acute renal failure (ARF) Current Visit: Yes Status: Acute Assessment and Plan: Nonoliguric, most likely secondary to prerenal kidney injury from acute CHF exacerbation Creatinine on 11/04/17- was 1.10 It has increased to 2.33 on 04/28 now trending down to 1.67 IV fluids stopped on IV lasix Retroperitoneal ultrasound was performed which was unremarkable, full report below Strict intake and output measurement Avoid nephrotoxic medications, will hold evelyn and metformin will follow BMP in the AM and if creatinine continues to trend down will discharge the patient on PO diuretics retroperitoneal US: IMPRESSION: No acute abnormality detected. Limited examination. (4) Diabetes mellitus Current Visit: Yes Status: Chronic Assessment and Plan: Hold home dose of metformin A1c is 6.1 Fingerstick before meals at bedtime low salt diabetic diet Sliding-scale insulin. (5) Morbid obesity Current Visit: Yes Status: Chronic Assessment and Plan: Encouraged lifestyle modification. patient meets requirement for bariatric surgery. Follow-up with primary care physician. (6) AROLDO (obstructive sleep apnea) Current Visit: Yes Status: Chronic Assessment and Plan: Continue CPAP at night. (7) HLD (hyperlipidemia) Current Visit: Yes Status: Chronic Assessment and Plan: Continue Lipitor. Lipid panel reviewed (8) Hypokalemia Current Visit: Yes Status: Acute Assessment and Plan: resolved (9) DVT prophylaxis Current Visit: Yes Status: Acute Assessment and Plan: heparin sc - Time Spent with Patient Total time spent is greater than 50% in coordination of care (as documented) at patient's floor/unit and/or counseling patient: Internal Medicine: Result - Labs CBC & Chem 7: 04/29/18 05:12 04/29/18 05:12 Labs: Short CBC 04/29/18 Range/Units 05:12 WBC 7.0 (4.3-11.1) K/mcL Hgb 10.1 L (12.9-16.9) g/dL Hct 31.7 L (37.5-50.1) % Plt Count 296 (140-400) K/mcL BMP 04/29/18 05:12 Sodium 136 Potassium 3.6 Chloride 105 Carbon Dioxide 19 L BUN 32 H Creatinine 1.67 H Glucose 81 Calcium 8.8 - ABG Interpretation ABG results: PT/INR, D-dimer PT 13.7 Seconds (9.4-12.1) H 04/27/18 09:59 - Impressions Impressions Echocardiogram 04/28/18 09:00 Impressions: Technically sub-optimal due to poor echocardiographic windows, patient body habitus. LVEF 65%. Indeterminate diastolic function. No significant valvular dysfunction. Unable to estimate RVSP due to lack of TR jet. RA pressure 10 mmHg Left Ventricular Wall Motion: Rest Echo Findings All wall segments showed normal motion. Findings: Study Quality * Technically sub-optimal due to poor echocardiographic windows. * Technical review due to_RV function ECG Findings * Normal sinus rhythm. Left Ventricle * LVEF 65%. * Normal LV chamber size, wall thickness and systolic function. * Indeterminate diastolic function. Right Ventricle * RV not well seen Left Atrium * Normal left atrial size. Right Atrium * Right atrium is not well visualized. Interatrial Septum * Interatrial septum not well evaluated. Aortic Valve * Trileaflet aortic valve. * Trileaflet aortic valve with normal function. Mitral Valve * No mitral regurgitation. * No mitral stenosis. Tricuspid Valve * No tricuspid regurgitation. * Tricuspid valve not well visualized. * Unable to estimate RVSP due to lack of TR jet. Pulmonic Valve * Pulmonic valve not well visualized. * No pulmonic regurgitation. Aorta * Normally sized aortic root. Pericardium * The pericardium appears normal. IVC * Normal IVC dimensions and inspiratory collapse. * RA pressure 10 mmHg Consult Discharge Plan - Plan Referrals: Phil Le MD [Primary Care Provider] - (4) Diabetes mellitus Qualifiers: Diabetes mellitus type: type 2 Diabetes mellitus parts counterman insulin use: without parts counterman use Diabetes mellitus complication status: without complication Qualified Code(s): E11.9 - Type 2 diabetes mellitus without complications (7) HLD (hyperlipidemia) Qualifiers: Hyperlipidemia type: unspecified Qualified Code(s): E78.5 - Hyperlipidemia, unspecified
[2018-04-29] MEDS: *HR* Heparin 5,000 UNIT/ML VIAL SQ SCH ×2 (14:13→21:53)
[2018-04-30] MEDS: *HR* Heparin 5,000 UNIT/ML VIAL SQ SCH ×3 (05:47→22:12)
[2018-04-30 08:11] LABS: BUN/Creatinine Ratio 20 (6-26); Blood Urea Nitrogen 23 mg/dL (8-23); Calcium 9.4 mg/dL (8.6-10.3); Carbon Dioxide 24 mEq/L (23-29); Chloride 104 mEq/L (98-107); Glucose 90 mg/dL (70-105); Osmolality,Calculated 287 (280-300); Potassium 3.7 mEq/L (3.5-5.1); Sodium 137 mEq/L (136-145); eGFR For Non-African Americans > 60 (> 60)
[2018-04-30 08:14] LABS: Hematocrit 36.2 % (37.5-50.1); Hemoglobin 11.4 g/dL (12.9-16.9); Mean Corpuscular HGB Conc 31.5 g/dL (31.6-35.5); Mean Corpuscular Hemoglobin 28.3 pg (28.0-33.3); Mean Corpuscular Volume 89.8 fL (83.0-100.0); Mean Platelet Volume 9.2 fL (9.4-12.4); Platelet Count 330 K/mcL (140-400); Red Blood Count 4.03 M/mcL (4.19-5.50); Red Cell Distribution Width 16.1 % (11.5-14.5)
[2018-04-30] MEDS: Aspirin Enteric Coated 81 MG Tablet PO SCH (09:12)
[2018-04-30] MEDS: Furosemide 40 MG/4 ML VIAL IVP SCH (09:13)
--- NOTE | 2018-04-30 12:26 | Internal Med Progress Note ---
Hospitalist Progress Note - Encounter Date of Encounter: 04/30/18 Time of Encounter: 12:24 - Subjective Interval History: patient was seen and examined at bedside. he reports improvement in his breathing. denies chest pain, SOB, palpitations, no overnight events overnight tolerated PO diet he reports that he no longer sees bugs on [facility]. feels much better but does not wish to return home as he still feels week and would like to go to a rehabilitation facility denies SI or HI - Exam Vitals: Temp Pulse Resp BP Pulse Ox 98.1 F 66 18 163/78 95 04/30/18 11:31 04/30/18 11:31 04/30/18 11:31 04/30/18 11:31 04/30/18 11:31 Exam: General: Patient is alert, oriented, no acute distress, morbidly obese Head: atraumatic, normocephalic, Eye: normal appearance, PERRL, no scleral icterus, no conjunctival injection, short neck ENT: mucous membranes moist, normal external ear exam Neck: normal inspection, trachea midline, full ROM, no carotid bruits Chest: normal inspection, symmetric chest rise Respiratory: Decreased breath sounds secondary to body habitus, Good respiratory effort. Bilateral breath sounds are clear without wheezing, crackles, or rhonchi. Cardiovascular: Distant heart sounds secondary to body habitus, Regular rate and rhythm. s1 and s2 No clicks, rubs, gallops, or murmors. Abdomen: Bowel sounds present normoactive x-4 quadrants. Abdomen is soft, nondistended. no Epigastric tenderness. No guarding or rebound. No organomegaly noted, obese musculoskeletal: Spontaneously moving all extremities. +1 edema, of the feet, no calf tenderness Skin: warm, dry, intact. Neuro: Alert and oriented x4. Sensation light touch intact. Cranial nerves 2- 12 is intact. Not aphasic, no focal deficit Psych: Patient's affect is normal - Assessment and Plan (1) Elevated troponin Current Visit: Yes Status: Acute Assessment and Plan: most likely secondary to supply vs demand mismatch Ruled out PE- VQ scan performed on 04/26 was low probability for PE Initial troponin 0.47, which trended up to 0.62 and 0.05 BNP 120 Heparin drip was started in the ED, pharmacist dose- for NSTEMI - discontinued He was loaded with aspirin in the ED Continue aspirin 81 daily Was started on metoprolol 12.5 mg twice a day- hold had 3 second pause on TELE on 04/30 Continue Lipitor We will hold off of ACEI as his ARF just resolved- will resume once renal functions are more stable Cardiology consulted and he was started on lasix TTE Impressions: Technically sub-optimal due to poor echocardiographic windows, patient body habitus. LVEF 65%. Indeterminate diastolic function. No significant valvular dysfunction. Unable to estimate RVSP due to lack of TR jet. RA pressure 10 mmHg V/Q scan 04/26- IMPRESSION: Low probability for pulmonary embolus. CXR: IMPRESSION: 1. Cardiomegaly with mild vascular congestion. (2) Sinus pause Current Visit: Yes Status: Acute Assessment and Plan: patient was off bipap when cardiac monitoring showed sinus pause 2 seconds and 3 seconds was easily arousable will hold BB for now most likely related to AROLDO i discussed pause with Dr. thomas who also agrees that its due to his AROLDO was counseled on compliance to BIPAP (3) (HFpEF) heart failure with preserved ejection fraction Current Visit: Yes Status: Acute Assessment and Plan: Reports 25 lb weight gain. Likely multifactoral with AROLDO and morbid obesity. Weight down 16 lbs today. Symptoms improved on IV lasix increased to BID as renal functions have improved and he still has edema of the LE Low sodium diet. fluid restriction weight initially went down to 197 but now up to 202 he was counseled TTE 04/27 Impressions: Technically sub-optimal due to poor echocardiographic windows, patient body habitus. LVEF 65%. Indeterminate diastolic function. No significant valvular dysfunction. Unable to estimate RVSP due to lack of TR jet. RA pressure 10 mmHg (4) Acute renal failure (ARF) Current Visit: Yes Status: Resolved Assessment and Plan: Nonoliguric, most likely secondary to prerenal kidney injury from acute CHF exacerbation Creatinine on 11/04/17- was 1.10 was 2.33 on 04/28 now resolved and back to baseline on IV lasix will continue for one more day and switch to PO Retroperitoneal ultrasound was performed which was unremarkable, full report below Strict intake and output measurement Avoid nephrotoxic medications, will hold evelyn and metformin retroperitoneal US: IMPRESSION: No acute abnormality detected. Limited examination. (5) AROLDO (obstructive sleep apnea) Current Visit: Yes Status: Chronic Assessment and Plan: Continue CPAP at night. (6) Diabetes mellitus Current Visit: Yes Status: Chronic Assessment and Plan: Hold home dose of metformin A1c is 6.1 Fingerstick before meals at bedtime low salt diabetic diet Sliding-scale insulin. (7) Morbid obesity Current Visit: Yes Status: Chronic Assessment and Plan: Encouraged lifestyle modification. patient meets requirement for bariatric surgery. Follow-up with primary care physician. (8) HLD (hyperlipidemia) Current Visit: Yes Status: Chronic Assessment and Plan: Continue Lipitor. Lipid panel reviewed (9) DVT prophylaxis Current Visit: Yes Status: Acute Assessment and Plan: heparin sc (10) Hypokalemia Current Visit: Yes Status: Resolved - Time Spent with Patient Total time spent is greater than 50% in coordination of care (as documented) at patient's floor/unit and/or counseling patient: Internal Medicine: Result - Labs CBC & Chem 7: 04/30/18 07:17 04/30/18 07:17 Labs: Short CBC 04/30/18 Range/Units 07:17 WBC 7.0 (4.3-11.1) K/mcL Hgb 11.4 L (12.9-16.9) g/dL Hct 36.2 L (37.5-50.1) % Plt Count 330 (140-400) K/mcL BMP 04/30/18 07:17 Sodium 137 Potassium 3.7 Chloride 104 Carbon Dioxide 24 BUN 23 Creatinine 1.17 Glucose 90 Calcium 9.4 - ABG Interpretation ABG results: PT/INR, D-dimer PT 13.7 Seconds (9.4-12.1) H 04/27/18 09:59 Consult Discharge Plan - Plan Referrals: Phil Le MD [Primary Care Provider] - (6) Diabetes mellitus Qualifiers: Diabetes mellitus type: type 2 Diabetes mellitus prison insulin use: without prison use Diabetes mellitus complication status: without complication Qualified Code(s): E11.9 - Type 2 diabetes mellitus without complications (8) HLD (hyperlipidemia) Qualifiers: Hyperlipidemia type: unspecified Qualified Code(s): E78.5 - Hyperlipidemia, unspecified
--- NOTE | 2018-04-30 14:06 | Consult Note ---
Date of Encounter: 04/30/18 Time of Encounter: 14:03 Assessment & Recommendation (1) Shortness of breath Current visit: Yes Status: Acute Assessment & Recommendation: No evidence of psychosis on exam. Client reports VH have improved. Would not necessarily do anything for management of VH at this time. Client does report some depression. VH can accompany depression at times although his depressive symptoms do not seem severe enough for mood to be the source of the problem. Recommend he follow up with an outpatient psychiatrist for management of depression. Client denies SI and feels comfortable with outpatient follow-up. History of Present Illness Requesting Physician: Renee Miller MD Reason for consult: visual hallucinations History of present illness: Mr. Slater is a 58 year old male who was admitted medically but started to experience visual hallucinations this admission. Client reports he was seeing a spider in the sharps container and bugs crawling on the sink. Claims hallucinations were constant to start but are now intermittent. Does not seem distressed by hallucinations. No mental health history. However, he does admit to feeling depressed following the of his mother in December. He helped take care of her and he is now planning to move into a senior apartment complex. Denies SI. Has never seen a mental health provider. No substance abuse issues. No cognitive issues. Alert and oriented. No evidence of psychosis on exam. No evidence of responding to internal stimuli. CC: Renee Miller MD Past Med Surg Social Fam HX - Past Medical History Medical history: diabetes, hyperlipidemia, hypertension - Past Psychiatric History Psychiatric history: Reports: no psych history Family psychiatric history: Yes Family Psychiatric History Details: Brother-bipolar disorder Family History of Suicide: Unknown - Past Surgical History Surgical History: cholecystectomy - Social History Smoking Status: Never smoker Smokeless Tobacco Status: No Alcohol use: occasionally Drug use: none - Family History Brother Name: Jt Slater Living Status: Still Living Hx Family Cardiac Disorders: Yes (x2 heart attack, CABG, stents) Medications & Allergies Atenolol [Atenolol] 100 mg PO DAILY 01/26/18 [History] Lovastatin [Mevacor] 40 mg PO QPM 01/26/18 [History] metFORMIN [Glucophage] 500 mg PO BID 01/26/18 [History] Doxycycline 100 mg PO BID #20 capsule 04/26/18 [Rx] Lisinopril/Hydrochlorothiazide [Zestoretic 20-25 mg Tablet] 1 tab PO DAILY 04/27 [History] 3 Allergy/AdvReac Type Severity Reaction Status Date / Time Erythromycin Base AdvReac See Verified 04/26/18 15:41 [From E-Mycin] Comments Review of Systems Constitutional: Denies: fever, chills, weakness, weight change Eyes: Denies: eye pain, vision change Ears, Nose, Throat: Denies: ear pain, throat pain, dental pain, hearing loss, congestion Cardiovascular: Denies: chest pain, palpitations, dyspnea on exertion Respiratory: Reports: cough, dyspnea Gastrointestinal: Denies: abdominal pain, nausea, vomiting, diarrhea, constipation Genitourinary male: Denies: urgency, dysuria, frequency, genital lesions Musculoskeletal: Denies: joint swelling, joint pain Integumentary: Denies: rash, lesions, pruritus Neurological: Denies: headache, weakness, numbness, memory loss Endocrine: Denies: fatigue, heat or cold intolerance Hematologic/Lymphatic: Denies: easy bruising, lymphadenopathy Allergic/Immunologic: Denies: urticaria, itchy eyes Psychiatry Exam - Constitutional Vitals: Temp Pulse Resp BP Pulse Ox 98.1 F 66 18 163/78 95 04/30/18 11:31 04/30/18 11:31 04/30/18 11:31 04/30/18 11:31 04/30/18 11:31 General appearance: obese - Musculoskeletal Gait: normal Station: relaxed Strength & Tone: normal for patient - Psychiatric Patient Orientation: Yes Person, Yes Time, Yes Place Level of alertness: Alert Behavior: calm, cooperative Psychomotor activity: Normal Eye Contact: Maintains Eye Contact Mood Description: Depressed Affect description: full range Speech Volume: Normal Speech pattern: normal rate, normal rhythm, normal tone, fluent, spontaneous Language & Vocabulary: consistent with education Thought Process: Linear, Goal Oriented Thought Content: No Suicidal ideation, No Homicidal ideation, No Overt delusions Perceptual Disturbances: No Reacting to internal stimuli, No Auditory hallucinations, Yes Visual hallucinations Attention Span Ability: Capable of Focused Attention Memory Description: Grossly Intact Patient Reliability: Reliable Historian Fund of knowledge: Yes abstraction ability, Yes aware of current events Intelligence Estimate: Average Judgment: Fair Insight: Partial Results - Labs Labs: Laboratory Last Values WBC 7.0 K/mcL (4.3-11.1) 04/30/18 07:17 RBC 4.03 M/mcL (4.19-5.50) L 04/30/18 07:17 Hgb 11.4 g/dL (12.9-16.9) L 04/30/18 07:17 Hct 36.2 % (37.5-50.1) L 04/30/18 07:17 MCV 89.8 fL (83.0-100.0) 04/30/18 07:17 MCH 28.3 pg (28.0-33.3) 04/30/18 07:17 MCHC 31.5 g/dL (31.6-35.5) L 04/30/18 07:17 RDW 16.1 % (11.5-14.5) H 04/30/18 07:17 Plt Count 330 K/mcL (140-400) 04/30/18 07:17 MPV 9.2 fL (9.4-12.4) L 04/30/18 07:17 Immature Gran % 0.6 % (0-4) 04/28/18 04:47 Seg Neutrophils % 45.9 % 04/28/18 04:47 Lymphocytes % 31.7 % 04/28/18 04:47 Monocytes % 12.2 % 04/28/18 04:47 Eosinophils % 8.6 % 04/28/18 04:47 Basophils % 1.0 % 04/28/18 04:47 Neutrophils # 3.3 K/mcL (1.6-8.9) 04/28/18 04:47 Lymphocytes # 2.3 K/mcL (0.6-4.6) 04/28/18 04:47 Monocytes # 0.9 K/mcL (0.0-1.3) 04/28/18 04:47 Eosinophils # 0.6 K/mcL (0.0-0.6) 04/28/18 04:47 Basophils # 0.1 K/mcL (0.0-0.2) 04/28/18 04:47 PT 13.7 Seconds (9.4-12.1) H 04/27/18 09:59 INR 1.2 04/27/18 09:59 Heparin Anti-Xa, LM Wt 0.50 IU/mL (0.50-1.10) 04/28/18 11:01 Heparin Anti-Xa, Unfract 0.06 IU/mL (0.30-0.70) L 04/27/18 09:59 Sodium 137 mEq/L (136-145) 04/30/18 07:17 Potassium 3.7 mEq/L (3.5-5.1) 04/30/18 07:17 Chloride 104 mEq/L (98-107) 04/30/18 07:17 Carbon Dioxide 24 mEq/L (23-29) 04/30/18 07:17 BUN 23 mg/dL (8-23) 04/30/18 07:17 Creatinine 1.17 mg/dL (0.70-1.30) 04/30/18 07:17 Est GFR ( Amer) > 60 (> 60) 04/30/18 07:17 Est GFR (Non-Af Amer) > 60 (> 60) 04/30/18 07:17 BUN/Creatinine Ratio 20 (6-26) 04/30/18 07:17 Glucose 90 mg/dL (70-105) 04/30/18 07:17 POC Glucose 90 mg/dL (70-99) 04/29/18 16:10 Est Mean Plasma Glucose 128 mg/dl 04/29/18 05:12 Hemoglobin A1c 6.1 % (-5.6) H 04/29/18 05:12 Calculated Osmolality 287 (280-300) 04/30/18 07:17 Calcium 9.4 mg/dL (8.6-10.3) 04/30/18 07:17 Magnesium 2.6 mg/dL (1.6-2.6) 04/27/18 09:59 Total Bilirubin 0.2 mg/dL (0.3-1.0) L 04/27/18 09:59 AST 46 Units/L (13-39) H 04/27/18 09:59 ALT 20 Units/L (7-52) 04/27/18 09:59 Alkaline Phosphatase 40 Units/L (34-104) 04/27/18 09:59 Troponin I 0.50 ng/mL (< 0.04) H* 04/27/18 22:30 B-Natriuretic Peptide 120 pg/mL (Less than 100) H 04/27/18 09:59 Serum Total Protein 7.5 g/dL (6.4-8.9) 04/27/18 09:59 Albumin 4.3 g/dL (3.5-5.7) 04/27/18 09:59 Globulin 3.2 g/dL (2.4-3.5) 04/27/18 09:59 Albumin/Globulin Ratio 1.3 (1.1-2.2) 04/27/18 09:59 Triglycerides 111 mg/dL (< 150) 04/28/18 04:47 Cholesterol 155 mg/dL (< 200) 04/28/18 04:47 LDL Cholesterol, Calc 82 mg/dL (0-99) 04/28/18 04:47 VLDL Cholesterol, Calc 22 mg/dL (< 31) 04/28/18 04:47 HDL Cholesterol 51 mg/dL (40-59) 04/28/18 04:47 Cholesterol/HDL Ratio 3.0 (0-4.9) 04/28/18 04:47 Consult Discharge Plan - Plan Referrals: Phil Le MD [Primary Care Provider] -
[2018-04-30] MEDS ORDERED: Furosemide 40 MG/4 ML VIAL IVP SCH (17:00)
[2018-05-01 02:23] LABS: Hematocrit 32.9 % (37.5-50.1); Hemoglobin 10.6 g/dL (12.9-16.9); Mean Corpuscular HGB Conc 32.2 g/dL (31.6-35.5); Mean Corpuscular Hemoglobin 28.6 pg (28.0-33.3); Mean Corpuscular Volume 88.9 fL (83.0-100.0); Mean Platelet Volume 9.3 fL (9.4-12.4); Platelet Count 298 K/mcL (140-400); Red Cell Distribution Width 15.9 % (11.5-14.5)
[2018-05-01 02:48] LABS: BUN/Creatinine Ratio 21 (6-26); Blood Urea Nitrogen 24 mg/dL (8-23); Calcium 9.1 mg/dL (8.6-10.3); Carbon Dioxide 26 mEq/L (23-29); Chloride 101 mEq/L (98-107); Glucose 110 mg/dL (70-105); Osmolality,Calculated 287 (280-300); Potassium 3.3 mEq/L (3.5-5.1); Sodium 136 mEq/L (136-145); eGFR For Non-African Americans > 60 (> 60)
[2018-05-01] MEDS: *HR* Heparin 5,000 UNIT/ML VIAL SQ SCH ×3 (05:21→20:47)
[2018-05-01] MEDS: Aspirin Enteric Coated 81 MG Tablet PO SCH (08:23)
[2018-05-01] MEDS ORDERED: Furosemide Oral Soln 40 MG/4 ML UDC PO SCH (10:30)
--- NOTE | 2018-05-01 16:32 | Internal Med Progress Note ---
Hospitalist Progress Note - Encounter Date of Encounter: 05/01/18 Time of Encounter: 08:00 - Subjective Interval History: patient was seen and examined at bedside. he reports improvement in his breathing. denies chest pain, SOB, palpitations, no overnight events overnight tolerated PO diet he reports that he no longer sees bugs on [facility]. feels much better but does not wish to return home as he still feels week and would like to go to a rehabilitation facility denies SI or HI - Exam Vitals: Temp Pulse Resp BP Pulse Ox 98.3 F 72 16 175/83 94 05/01/18 16:23 05/01/18 16:23 05/01/18 16:23 05/01/18 16:23 05/01/18 16:23 Exam: General: Patient is alert, oriented, no acute distress, morbidly obese Head: atraumatic, normocephalic, Eye: normal appearance, PERRL, no scleral icterus, no conjunctival injection, short neck ENT: mucous membranes moist, normal external ear exam Neck: normal inspection, trachea midline, full ROM, no carotid bruits Chest: normal inspection, symmetric chest rise Respiratory: Decreased breath sounds secondary to body habitus, Good respiratory effort. Bilateral breath sounds are clear without wheezing, crackles, or rhonchi. Cardiovascular: Distant heart sounds secondary to body habitus, Regular rate and rhythm. s1 and s2 No clicks, rubs, gallops, or murmors. Abdomen: Bowel sounds present normoactive x-4 quadrants. Abdomen is soft, nondistended. no Epigastric tenderness. No guarding or rebound. No organomegaly noted, obese musculoskeletal: Spontaneously moving all extremities. +1 edema, of the feet, no calf tenderness Skin: warm, dry, intact. Neuro: Alert and oriented x4. Sensation light touch intact. Cranial nerves 2- 12 is intact. Not aphasic, no focal deficit Psych: Patient's affect is normal - Assessment and Plan (1) Elevated troponin Current Visit: Yes Status: Acute Assessment and Plan: most likely secondary to supply vs demand mismatch Ruled out PE- VQ scan performed on 04/26 was low probability for PE Initial troponin 0.47, which trended up to 0.62 and 0.05 BNP 120 Heparin drip was started in the ED, pharmacist dose- for NSTEMI - discontinued He was loaded with aspirin in the ED Continue aspirin 81 daily Was started on metoprolol 12.5 mg twice a day- hold had 3 second pause on TELE on 04/30 Continue Lipitor We will hold off of ACEI as his ARF just resolved- will resume once renal functions are more stable Cardiology consulted and he was started on lasix TTE Impressions: Technically sub-optimal due to poor echocardiographic windows, patient body habitus. LVEF 65%. Indeterminate diastolic function. No significant valvular dysfunction. Unable to estimate RVSP due to lack of TR jet. RA pressure 10 mmHg V/Q scan 04/26- IMPRESSION: Low probability for pulmonary embolus. CXR: IMPRESSION: 1. Cardiomegaly with mild vascular congestion. (2) Sinus pause Current Visit: Yes Status: Acute Assessment and Plan: patient was off bipap when cardiac monitoring showed sinus pause 2 seconds and 3 seconds on 04/30/18 was easily arousable will hold BB most likely related to AROLDO i discussed pause with Dr. thomas who also agrees that its due to his AROLDO was counseled on compliance to BIPAP (3) (HFpEF) heart failure with preserved ejection fraction Current Visit: Yes Status: Acute Assessment and Plan: Reports 25 lb weight gain. Likely multifactoral with AROLDO and morbid obesity. Weight down 16 lbs today. Symptoms improved was treated with IV lasix and now switched to oral lasix. Low sodium diet. fluid restriction weight initially went down to 197 but now up to 202 on 04/30 again down to 195. he was counseled on importance of fluid restriction. TTE 04/27 Impressions: Technically sub-optimal due to poor echocardiographic windows, patient body habitus. LVEF 65%. Indeterminate diastolic function. No significant valvular dysfunction. Unable to estimate RVSP due to lack of TR jet. RA pressure 10 mmHg (4) Acute renal failure (ARF) Current Visit: Yes Status: Resolved Assessment and Plan: Nonoliguric, most likely secondary to prerenal kidney injury from acute CHF exacerbation Creatinine on 11/04/17- was 1.10 was 2.33 on 04/28 now resolved and back to baseline on Po lasix 40 mg Qday Retroperitoneal ultrasound was performed which was unremarkable, full report below Strict intake and output measurement Avoid nephrotoxic medications, will hold evelyn and metformin retroperitoneal US: IMPRESSION: No acute abnormality detected. Limited examination. (5) AROLDO (obstructive sleep apnea) Current Visit: Yes Status: Chronic Assessment and Plan: Continue CPAP at night. (6) Diabetes mellitus Current Visit: Yes Status: Chronic Assessment and Plan: Hold home dose of metformin A1c is 6.1 Fingerstick before meals at bedtime low salt diabetic diet Sliding-scale insulin. (7) Morbid obesity Current Visit: Yes Status: Chronic Assessment and Plan: Encouraged lifestyle modification. patient meets requirement for bariatric surgery. Follow-up with primary care physician. (8) HLD (hyperlipidemia) Current Visit: Yes Status: Chronic Assessment and Plan: Continue Lipitor. Lipid panel reviewed (9) DVT prophylaxis Current Visit: Yes Status: Acute Assessment and Plan: heparin sc (10) Hypokalemia Current Visit: Yes Status: Resolved Assessment and Plan: replaced follow BMP in AM (11) Visual hallucination Current Visit: Yes Status: Acute Assessment and Plan: psych was consulted Recommended he follow up with an outpatient psychiatrist for management of depression. (12) Physical deconditioning Current Visit: Yes Status: Acute Assessment and Plan: reports increase difficulty in walking and is requesting to be sent to a rehab facility Pt/OT was consulted SW and CM on board - Time Spent with Patient Total time spent is greater than 50% in coordination of care (as documented) at patient's floor/unit and/or counseling patient: Internal Medicine: Result - Labs CBC & Chem 7: 05/01/18 01:41 05/01/18 01:41 Labs: Short CBC 05/01/18 Range/Units 01:41 WBC 7.8 (4.3-11.1) K/mcL Hgb 10.6 L (12.9-16.9) g/dL Hct 32.9 L (37.5-50.1) % Plt Count 298 (140-400) K/mcL BMP 05/01/18 01:41 Sodium 136 Potassium 3.3 L Chloride 101 Carbon Dioxide 26 BUN 24 H Creatinine 1.15 Glucose 110 H Calcium 9.1 - ABG Interpretation ABG results: PT/INR, D-dimer PT 13.7 Seconds (9.4-12.1) H 04/27/18 09:59 Consult Discharge Plan - Plan Referrals: Phil Le MD [Primary Care Provider] - 05/05/18 1:00 pm (Please follow up as schedule...) (6) Diabetes mellitus Qualifiers: Diabetes mellitus type: type 2 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
[2018-05-01] MEDS: Acetaminophen 325 MG TABLET PO PRN (22:27)
[2018-05-02 05:07] LABS: Hematocrit 34.1 % (37.5-50.1); Hemoglobin 10.7 g/dL (12.9-16.9); Mean Corpuscular HGB Conc 31.4 g/dL (31.6-35.5); Mean Corpuscular Hemoglobin 28.2 pg (28.0-33.3); Mean Platelet Volume 9.2 fL (9.4-12.4); Platelet Count 291 K/mcL (140-400); Red Blood Count 3.79 M/mcL (4.19-5.50); Red Cell Distribution Width 15.9 % (11.5-14.5)
[2018-05-02 05:28] LABS: BUN/Creatinine Ratio 25 (6-26); Blood Urea Nitrogen 24 mg/dL (8-23); Calcium 9.1 mg/dL (8.6-10.3); Carbon Dioxide 22 mEq/L (23-29); Chloride 103 mEq/L (98-107); Glucose 109 mg/dL (70-105); Osmolality,Calculated 287 (280-300); Potassium 3.8 mEq/L (3.5-5.1); Sodium 136 mEq/L (136-145); eGFR For Non-African Americans > 60 (> 60)
[2018-05-02] MEDS: *HR* Heparin 5,000 UNIT/ML VIAL SQ SCH ×3 (06:40→20:43)
[2018-05-02] MEDS: Aspirin Enteric Coated 81 MG Tablet PO SCH (08:36)
[2018-05-02] MEDS: Furosemide 40 MG TABLET PO SCH (08:36)
--- NOTE | 2018-05-02 16:33 | Internal Med Progress Note ---
Hospitalist Progress Note - Encounter Date of Encounter: 05/02/18 Time of Encounter: 17:00 - Subjective Interval History: SUBJECTIVE: The patient feels weak. Otherwise, he is not voicing any other symptoms. He is on room air oxygen. Denies chest pain. His resting dyspnea subsided; he had uneventful last night. Denies coughing and wheezing. He has no swelling of his legs/feet. OBJECTIVE: Skin: Free of rash and discoloration. ENMT: Oral/pharyngeal mucosa is normal in appearance. Eyes: Sclera is white. There is no discharge from eyes. Respiratory: Normal breath sounds; no crackles or wheezes. CV: Heart is regular; no gallop or murmur. GI: Abdomen is soft and not tender. There is no palpable mass or visceromegaly. Neuro: There is no focal deficits. ASSESSMENT AND PLAN: Elevated troponin, likely secondary to diastolic heart failure/acute kidney injury. The acute component of his diastolic heart failure is gone after treatment with diuretics. Acute kidney injury subsided. I talked to the patient about mild fluid restriction of 1800 cc per day. He gets Lasix at 40 mg by mouth daily. Hypokalemia. I am going to add potassium chloride to his oral medications. This problem is secondary to treatment with Lasix. Type 2 diabetes mellitus. Under control. We will continue diabetic diet. Will restart his metformin. Obstructive sleep apnea. He cannot tolerate the hospital machine. He is going to start his own machine. Visual hallucinations/depression. See notes from psychiatry. They recommend outpatient treatments. Debility/deconditioning. The patient is waiting for placement in ECF. DISPOSITION: The patient is waiting for placement in ECF. - Exam Vitals: Temp Pulse Resp BP Pulse Ox 98.1 F 79 18 165/70 98 05/02/18 16:14 05/02/18 16:14 05/02/18 16:14 05/02/18 16:14 05/02/18 16:14 Exam: xxx - Assessment and Plan (1) Elevated troponin Current Visit: Yes Status: Acute (2) Chronic diastolic heart failure Current Visit: Yes Status: Chronic (3) Acute renal failure (ARF) Current Visit: Yes Status: Resolved (4) Hypokalemia Current Visit: Yes Status: Resolved (5) Diabetes mellitus Current Visit: Yes Status: Chronic (6) HTN (hypertension) Current Visit: Yes Status: Acute (7) AROLDO (obstructive sleep apnea) Current Visit: Yes Status: Chronic (8) Visual hallucination Current Visit: Yes Status: Acute (9) Depression Current Visit: Yes Status: Chronic - Time Spent with Patient Total time spent is greater than 50% in coordination of care (as documented) at patient's floor/unit and/or counseling patient: 25 - 35 minutes Plan of Care Discussed with: case management Internal Medicine: Result - Labs CBC & Chem 7: 05/02/18 04:33 05/02/18 04:33 Labs: Short CBC 05/02/18 Range/Units 04:33 WBC 7.5 (4.3-11.1) K/mcL Hgb 10.7 L (12.9-16.9) g/dL Hct 34.1 L (37.5-50.1) % Plt Count 291 (140-400) K/mcL BMP 05/02/18 04:33 Sodium 136 Potassium 3.8 Chloride 103 Carbon Dioxide 22 L BUN 24 H Creatinine 0.95 Glucose 109 H Calcium 9.1 - ABG Interpretation ABG results: PT/INR, D-dimer PT 13.7 Seconds (9.4-12.1) H 04/27/18 09:59 Consult Discharge Plan - Plan Referrals: Phil Le MD [Primary Care Provider] - 05/05/18 1:00 pm (Please follow up as schedule...) (5) Diabetes mellitus Qualifiers: Diabetes mellitus type: type 2 Diabetes mellitus mcfp insulin use: without terminal make up operator use Diabetes mellitus complication status: without complication Qualified Code(s): E11.9 - Type 2 diabetes mellitus without complications (6) HTN (hypertension) Qualifiers: Hypertension type: essential hypertension Qualified Code(s): I10 - Essential (primary) hypertension (9) Depression Qualifiers: Depression Type: unspecified Qualified Code(s): F32.9 - Major depressive disorder, single episode, unspecified
[2018-05-02] MEDS: Acetaminophen 325 MG TABLET PO PRN (20:48)
[2018-05-03] MEDS: *HR* Heparin 5,000 UNIT/ML VIAL SQ SCH ×3 (04:55→22:09)
[2018-05-03] MEDS: hydrALAZINE 10 MG TABLET PO PRN ×3 (04:56→23:54)
[2018-05-03] MEDS: Furosemide 40 MG TABLET PO SCH (08:36)
[2018-05-03] MEDS: Aspirin Enteric Coated 81 MG Tablet PO SCH (08:36)
[2018-05-03] MEDS: Acetaminophen 325 MG TABLET PO PRN ×2 (08:41→22:14)
--- NOTE | 2018-05-03 21:27 | Internal Med Progress Note ---
Hospitalist Progress Note - Encounter Date of Encounter: 05/03/18 Time of Encounter: 19:00 - Subjective Interval History: SUBJECTIVE: The patient feels weak. He needs a lot of assistance to get her standing from a supine position. He is able to walk with her walker; shorter distances. He gets short of breath easily. Denies chest pain. Denies coughing and wheezing. Denies abdominal pain, nausea and vomiting. He makes good amounts of urine. OBJECTIVE: Skin: Free of rash and discoloration. ENMT: Oral/pharyngeal mucosa is normal in appearance. Eyes: Sclera is white. There is no discharge from eyes. Respiratory: Normal breath sounds; no crackles or wheezes. CV: Heart is regular; no gallop or murmur. GI: Abdomen is soft and not tender. There is no palpable mass or visceromegaly. Neuro: There is no focal deficits. ASSESSMENT AND PLAN: Elevated troponin, likely secondary to diastolic heart failure/acute kidney injury. The acute component of his diastolic heart failure is gone after treatment with diuretics. Acute kidney injury subsided. He is on fluid restriction of 1800 cc per day. He gets Lasix. Type 2 diabetes mellitus. Under control. We will continue diabetic diet. We will continue metformin Obstructive sleep apnea. He cannot tolerate the hospital machine. He is going to start his own machine. Visual hallucinations/depression. See notes from psychiatry. They recommend outpatient treatments. Debility/deconditioning. The patient is waiting for placement in ECF. DISPOSITION: The patient is waiting for placement in ECF. - Exam Vitals: Temp Pulse Resp BP Pulse Ox 97.9 F 86 20 141/81 96 05/03/18 18:45 05/03/18 18:45 05/03/18 18:45 05/03/18 18:45 05/03/18 18:45 Exam: xxx - Assessment and Plan (1) Elevated troponin Current Visit: Yes Status: Acute (2) Chronic diastolic heart failure Current Visit: Yes Status: Chronic (3) Acute renal failure (ARF) Current Visit: Yes Status: Resolved (4) Hypokalemia Current Visit: Yes Status: Resolved (5) Diabetes mellitus Current Visit: Yes Status: Chronic (6) HTN (hypertension) Current Visit: Yes Status: Acute (7) AROLDO (obstructive sleep apnea) Current Visit: Yes Status: Chronic (8) Visual hallucination Current Visit: Yes Status: Acute (9) Depression Current Visit: Yes Status: Chronic (10) Debility Current Visit: Yes Status: Acute - Time Spent with Patient Total time spent is greater than 50% in coordination of care (as documented) at patient's floor/unit and/or counseling patient: 25 - 35 minutes Plan of Care Discussed with: case management Internal Medicine: Result - Labs CBC & Chem 7: 05/02/18 04:33 05/02/18 04:33 - ABG Interpretation ABG results: PT/INR, D-dimer PT 13.7 Seconds (9.4-12.1) H 04/27/18 09:59 - Impressions Impressions Chest X-Ray 05/02/18 16:27 IMPRESSION: No acute disease. D/ / Ana Warren Cha, MD / Ana Warren Cha, MD Interpreting Provider: Ana Warren Cha, MD Consult Discharge Plan - Plan Referrals: Phil Le MD [Primary Care Provider] - 05/05/18 1:00 pm (Please follow up as schedule...) (5) Diabetes mellitus Qualifiers: Diabetes mellitus type: type 2 Diabetes mellitus custodial insulin use: without lobsterman use Diabetes mellitus complication status: without complication Qualified Code(s): E11.9 - Type 2 diabetes mellitus without complications (6) HTN (hypertension) Qualifiers: Hypertension type: essential hypertension Qualified Code(s): I10 - Essential (primary) hypertension (9) Depression Qualifiers: Depression Type: unspecified Qualified Code(s): F32.9 - Major depressive disorder, single episode, unspecified
[2018-05-04] MEDS: *HR* Heparin 5,000 UNIT/ML VIAL SQ SCH (05:38)
[2018-05-04] MEDS: *HR* Metformin 500 MG TABLET PO SCH ×2 (08:25→17:10)
[2018-05-04] MEDS: Furosemide 40 MG TABLET PO SCH (08:25)
[2018-05-04] MEDS: Aspirin Enteric Coated 81 MG Tablet PO SCH (08:25)
[2018-05-04] MEDS ORDERED: Furosemide 20 MG TABLET PO SCH (09:57)
[2018-05-04] MEDS: hydrALAZINE 10 MG TABLET PO PRN (11:05)
--- NOTE | 2018-05-04 16:41 | Discharge Summary ---
Date of Encounter: 05/04/18 Time of Encounter: 16:41 - Discharge Diagnosis (1) Elevated troponin Priority: Primary Status: Acute (2) Chronic diastolic heart failure Priority: Primary Status: Chronic (3) Acute renal failure (ARF) Priority: Primary Status: Resolved Qualifiers: Acute renal failure type: unspecified Qualified Code(s): N17.9 - Acute kidney failure, unspecified (4) Hypokalemia Priority: Secondary Status: Resolved (5) Diabetes mellitus Priority: Secondary Status: Chronic Qualifiers: Diabetes mellitus type: type 2 Diabetes mellitus intermediate project manager insulin use: without halfway use Diabetes mellitus complication status: without complication Qualified Code(s): E11.9 - Type 2 diabetes mellitus without complications (6) HTN (hypertension) Priority: Secondary Status: Acute Qualifiers: Hypertension type: essential hypertension Qualified Code(s): I10 - Essential (primary) hypertension (7) AROLDO (obstructive sleep apnea) Priority: Secondary Status: Chronic (8) Depression Priority: Secondary Status: Chronic Qualifiers: Depression Type: unspecified Qualified Code(s): F32.9 - Major depressive disorder, single episode, unspecified (9) Visual hallucination Priority: Secondary Status: Resolved (10) Debility Priority: Secondary Status: Acute Hospital course: The patient was admitted to the hospital with progressing difficulty breathing developing in the last few days preceding this admission. He has underlying type 2 diabetes mellitus, hypertension and obstructive sleep apnea. Chest x-ray done at admission showed possible mild pulmonary congestion. BNP was only 120. BMP and creatinine were 41 and two-point at 26 respectively. His troponin was 0.47, 0.62 and 0.50. EKG was done it showed normal findings. It was followed by echocardiogram. It showed normal left ventricular ejection fraction with possible diastolic dysfunction. One can see that this patient was taking lisinopril/HCTZ at home. He was also taking doxycyclineprescribed to him by his PCP. Cardiology was consulted. The patient was on IV heparin drip for a short period of time. He was treated with IV Lasix; without Zestril/HCTZ. This patient has never used tobacco. We did not hear him wheezing. He is morbidly obese. On uses a CPAP machine for treatment of obstructive sleep apnea. After a couple days it was our impression that this patient developed increased troponin due to increased creatinine/lisinopril and hydrochlorothiazide. He might have had some acute on chronic diastolic heart failure. He might have experienced a demand ischemia. The patient returned to his baseline. However, he has difficulty to get standing position/ambulate on his own due to the fact that he developed some deconditioning. This is why I was sending him to [facility] for rehab. CONDITION AT DISCHARGE: He feels pretty good. Other than a week, he is not voicing any other problems. Denies chest pain, difficulty breathing, coughing and wheezing. Skin: Free of rash and discoloration. Respiratory: Normal breath sounds with no crackles and wheezes bilaterally. CV: Heart is regular with no gallop or murmur. GI: Abdomen is flat and soft with no palpable mass or visceromegaly. Neuro exam: There is no focal deficits. Normal speech, swallowing and gait. He is markedly obese. His BMI is about 70. His last CBC shows hemoglobin of 10.6 with normal WBC/platelet count. His last BMP shows BUN of 24 and creatinine of 1.15. His sodium and potassium were 136 and 3.3 respectively. SEE DISCHARGE ORDERS/MEDICATIONS.. Discharge discussed with: patient, nurse, case management - Time Spent with Patient Total time spent providing and/or coordinating discharge services: Greater than 30 minutes (40 minutes) - Discharge Medications Home Medications: Atenolol 100 mg PO DAILY 01/26/18 [History] Lovastatin [Mevacor] 40 mg PO QPM 01/26/18 [History] metFORMIN [Glucophage] 500 mg PO BID 01/26/18 [History] Potassium Chloride 20 meq PO BIDWM tab.er.prt 05/04/18 [Rx] Allergies/Adverse Reactions: 3 Allergy/AdvReac Type Severity Reaction Status Date / Time Erythromycin Base AdvReac See Verified 04/26/18 15:41 [From E-Mycin] Comments Date of admission: 04/27/18 13:19 Primary care physician: Phil Le MD Consults: 04/27/18 14:20 Consult to Nutrition [CONS] Routine Comment: Consulting Provider: NUTRITION Reason for Dietary Consult: MST Score Consult to Pastoral Services [CONS] Routine Comment: anibal Suarez Consult to Aircraft Lay Out Worker [CONS] Routine Reason for SW Consult: pt would like to make brother Jt medical POA. discuss financial concerns. 04/29/18 11:50 Consult to Psychiatry [CONS] Routine Consulting Provider: Psychiatry Marleni Reason consult: Psychosis Other reason and/or additional details: patient is having visual hallucinations 04/30/18 10:36 Consult to Occupational Therapy [CONS] Routine Comment: Evaluate, develop and implement POC Reason for Consult: anastasiian would like to go to ECF Does patient have active BEDREST order?: No Is patient medically & hemodynamically stable?: Yes Patient assessed for mobility or mobilized this visit?: Yes Consult to Physical Therapy [CONS] Routine Comment: Evaluate, develop and implement POC Reason for Consult: dispostion Does patient have active BEDREST order?: No Is patient medically & hemodynamically stable?: Yes Patient assessed for mobility or mobilized this visit?: Yes 04/30/18 10:37 Consult to Case Management [CONS] Routine Comment: Discharging clinician: Cheng Hollis Anticipated date of discharge: 05/04/18 - Constitutional Vitals: Temp Pulse Resp BP Pulse Ox 98.7 F 80 16 164/92 100 05/04/18 10:29 05/04/18 10:29 05/04/18 10:29 05/04/18 10:29 05/04/18 10:29 General appearance: Present: mild distress (mild resp dstress, diaphoretic), A& O X 3, morbidly obese, pleasant, no acute distress, answers questions appropriately Exam: xxx - Patient Status Disposition: Transfer SNF Condition: Fair Functional capacity at discharge: uses cane/walker (needs assistance..) - Discharge Instructions Follow Up With: Phil Le MD [Primary Care Provider] - 05/05/18 1:00 pm (Please follow up as schedule...) - Diet and Activity Activity: ambulate only with your walker (and assistance), as per physical therapy Diet: diabetic diet (1500 elba per day; fluid restriction of 1800 cc per day) - VTE Deep Vein Thrombosis/Pulmonary Embolism Present on Admission: No
--- NOTE | 2018-05-04 16:58 | Physician Discharge Referral ---
ExtendedCare Referral Info Transfer To: [facility] ([place]) Provider in Charge: Noelle Hollis MD Provider in Charge after Transfer: Other (A SNF physician) Institutional Level of Care: Skilled - Diagnosis (1) Elevated troponin Priority: Primary Status: Acute (2) Chronic diastolic heart failure Priority: Primary Status: Chronic (3) Acute renal failure (ARF) Status: Resolved (4) Hypokalemia Status: Resolved (5) Diabetes mellitus Priority: Secondary Status: Chronic (6) HTN (hypertension) Priority: Secondary Status: Chronic (7) AROLDO (obstructive sleep apnea) Status: Chronic (8) Depression Priority: Secondary Status: Chronic (9) Visual hallucination Status: Resolved (10) Debility Priority: Secondary Status: Chronic Prognosis: Fair - Transfer Medications Home Medications: Atenolol 100 mg PO DAILY 01/26/18 [History] Lovastatin [Mevacor] 40 mg PO QPM 01/26/18 [History] metFORMIN [Glucophage] 500 mg PO BID 01/26/18 [History] Potassium Chloride 20 meq PO BIDWM tab.er.prt 05/04/18 [Rx] Allergies/Adverse Reactions: 3 Allergy/AdvReac Type Severity Reaction Status Date / Time Erythromycin Base AdvReac See Verified 04/26/18 15:41 [From E-Mycin] Comments - Respiratory Orders None Smoking Cessation: Smoking cessation has been advised. For more information, call the [place] Tobacco Quit Line at 8-335-LVLD-NOW. - Mobility Orders Ambulate (walker and assistance..) - Rehabiliation Orders Rehab Orders: Evaluation for Physical Therapy - Diet Orders No Concentrated Sweets (1,500 elba ADA; fluid restriction of 1,800 cc per day) CERTIFICATION: I certify that the transfer of the above named patient to an Extended Care Facility is necessary for the continuing treatment of the diagnosis listed. The above information is true and accurate reflection of patient's current condition. Confidential - Redisclosure prohibited without a patient's written consent.
[2018-05-04 17:11] VITALS: BP 157/91
== END 2018-05-04 18:37 | DRG 682 ==
LOC: EMEROOARM 09:39 → 2ANU 09:39 → SUATTDRO 13:19
PROVIDERS: ADMIT Internal Medicine; ATTEND Internal Medicine